=== PATIENT | female | born 1975 | race African-American/Black ===

== ENCOUNTER 2023-11-25 15:42 | Outpatient (CLI) | payer OTHER, SELFPAY ==
[2023-11-25 17:12] LABS: HIV 1/2 Ab P24 Ag Result Negative (Negative)
[2023-11-25 17:57] LABS: Hepatitis C Virus Antibody Negative (Negative)
[2023-11-26 14:45] LABS: Rapid Plasma Reagin Non-Reactive (NonReactive)
[2023-11-29 13:31] LABS: Hepatitis Be Antigen Nonreactive
== END 2023-11-25 15:43 | disposition home or self-care (01) ==
LOC: ANHLAB 15:43
PROVIDERS: Visit Provider Nurse Practitioner Family
DX: Z11.3 Encounter for screening for infections with a predominantly sexual mode of transmission (principal)
CPT/HCPCS: 36415; 86592; 86703; 86803; 87350; G0432

== ENCOUNTER 2023-12-16 06:29 | Day surgery (SDC) | payer OTHER, SELFPAY ==
[2023-11-26 14:34] VITALS: BMI 32.1
[2023-12-10 10:58] VITALS: BMI 31.8
[2023-12-16 07:15] VITALS: BP 141/102; PULSE 96; RESP 20; TEMP 36.7; O2SAT 100
--- NOTE | 2023-12-16 07:19 | PM.HPGS ---
History of Present Illness History of Present Illness Consent: Risks, benefits, and alternatives have been discussed and questions answered. Patient agrees to proceed with procedure. Chief complaint: Neoplasm Screening Narrative: Ryanne Jorgensen is a 48 year old female presents for screening colonoscopy. Patient's current weight appetite and bowel movements are normal. Patient denies abdominal pain. She has had no bleeding. Family history is significant that her mother had colon polyps. An aunt and grandmother had colon cancer. Review of Systems Review of Systems: Review of systems noncontributory. [facility] Past Medical History Medical History (Updated 12/16/23 @ 07:21 by Khari Brandt MD) Colon cancer screening Hypertension Surgical History Surgical History History of breast augmentation History of section x 3 History of cosmetic plastic surgery Lipo Suction [place] teeth removed Family History Family History Father Patient's father is in good health Mother Breast cancer History of thyroid cancer Hypertension Social History Social History Smoking status: Never smoker Alcohol intake: current Substance use type: does not use Living arrangements: with family Spiritual care concerns: No Meds Home Medications and Allergies Home Medications Medication Instructions Recorded Confirmed Type irbesartan 150 1 tablet PO DAILY 10/23/19 12/10/23 History mg-hydrochlorothiazide 12.5 mg tablet sodium,potassium,mag sulfates 17.5 See Rx Instructions PO .COMPLEX 11/26/23 12/01/23 Rx gram-3.13 gram-1.6 gram oral soln #354 mL (Suprep Bowel Prep Kit) Allergies Allergy/AdvReac Type Severity Reaction Status Date / Time codeine Allergy Unknown Nausea Verified 12/10/23 10:49 lisinopril Allergy Unknown DRY COUGH Verified 12/10/23 10:49 Penicillins Allergy Unknown Rash Verified 12/10/23 10:49 Exam Narrative: Physical exam reveals patient to be alert. Signs stable. HEENT exam is unremarkable. Patient is anicteric. Lungs are clear to auscultation and to percussion. Heart is without murmur extra sounds. Abdomen bowel sounds are present soft nontender with no organomegaly. digital external rectal exam is normal. Assessment and Plan Assessment and plan (1) Colon cancer screening: Code(s): Z12.11 - Encounter for screening for malignant neoplasm of colon Status: Acute Assessment and Plan: He presents for cancer screening. Patient's mother had colon polyps grandmother had colon cancer in aunt had colon cancer. Plan for surveillance colonoscopy now consider this a 5 year intervals.
--- NOTE | 2023-12-16 07:30 | WPDANESEPPF ---
Anes - Initial Pre Proc Eval Procedure: Operation Date: 12/16/23 08:00 Proposed Procedures p Screening Colonoscopy - Khari Brandt MD Date/Time: 12/16/23 07:30 Surgeon: Khari Brandt MD Pre Op Diagnosis: Neoplasm Screening Patient Data Age: 48 Gender: F Height: 1.57 m Weight: 79 kg Allergies Allergy/AdvReac Type Severity Reaction Status Date / Time codeine Allergy Unknown Nausea Verified 12/10/23 10:49 lisinopril Allergy Unknown DRY COUGH Verified 12/10/23 10:49 Penicillins Allergy Unknown Rash Verified 12/10/23 10:49 Home Medications Medication Instructions Recorded Confirmed Type irbesartan 150 1 tablet PO DAILY 10/23/19 12/10/23 History mg-hydrochlorothiazide 12.5 mg tablet sodium,potassium,mag sulfates 17.5 See Rx Instructions PO .COMPLEX 11/26/23 12/01/23 Rx gram-3.13 gram-1.6 gram oral soln #354 mL (Suprep Bowel Prep Kit) Patient hx anesthesia problems: none Family hx anesthesia problems: none Results Review: All pre-operative results and documents have been reviewed as part of the pre-operative evaluation. COUNT INCLUDES [facility] Past Medical History Medical History Colon cancer screening Hypertension Surgical History Surgical History History of breast augmentation History of section x 3 History of cosmetic plastic surgery Lipo Suction [place] teeth removed Family History Family History Father Patient's father is in good health Mother Breast cancer History of thyroid cancer Hypertension Social History Social History Smoking status: Never smoker Alcohol intake: current Substance use type: does not use Living arrangements: with family Spiritual care concerns: No Anes - Eval Final PreProcedure Day of Procedure 12/16/23 07:30 Patient weight: obese Heart: regular rate and rhythm Lungs: clear to auscultation Airway: Mallampati scale class II Neurological: alert and oriented Last oral intake: >/= 8 hours ASA classification: II Emergent: no Anesthetic plan: proceed Anesthesia type and monitoring: general GIVS and standard monitoring Results Review: All pre-operative results and documents have been reviewed as part of the pre-operative evaluation. Informed Consent: The patient's anesthetic plan and its attendant risks and benefits were discussed with the patient/family/POA. Questions were solicited and answers provided to the satisfaction of the patient/family/POA.
[2023-12-16] MEDS: LACTATED RINGERS 1,000 ML 150 ML IV CONT (07:36)
[2023-12-16 08:20] VITALS: BP 125/101; PULSE 92; RESP 16; O2SAT 100
[2023-12-16 08:30] VITALS: BP 133/100; PULSE 94; RESP 16; O2SAT 100
[2023-12-16 08:40] VITALS: BP 136/102; PULSE 92; RESP 16; O2SAT 100
--- NOTE | 2023-12-16 08:43 | WPDANESPN ---
Anes - Prog Note Post-Op Date/Time: 12/16/23 08:43 Cardiovascular status: normal Respiratory status: normal Airway patency: baseline Mental status: baseline Post-Op hydration status: normal Vital Signs: Last Vital Signs Temp 36.7 C 12/16/23 07:15 Pulse 92 12/16/23 08:20 Resp 16 12/16/23 08:20 BP 125/101 H 12/16/23 08:20 Pulse Ox 100 12/16/23 08:20 O2 Del Method Room Air 12/16/23 08:20 Pain Score (VAS): 0/10 I/O: Intake & Output 12/15/23 12/16/23 12/16/23 23:59 07:59 15:59 Intake Total 600 Balance 600 Patient Feedback: Patient satisfied with anesthetic care.
== END 2023-12-16 08:50 | disposition home or self-care (01) ==
PROVIDERS: Visit Provider Internal Medicine Gastroenterology
PROC: 0DJD8ZZ Inspection of Lower Intestinal Tract, Via Natural or Artificial Opening Endoscopic (ICD-10-PCS; CPT 45378; principal; 2023-12-16 08:00)
DX: Z83.718 Family history of other colon polyps (principal); D12.5 Benign neoplasm of sigmoid colon; K57.30 Diverticulosis of large intestine without perforation or abscess without bleeding; K64.8 Other hemorrhoids
CPT/HCPCS: 45385

== ENCOUNTER 2023-12-16 07:00 | Outpatient (NON) | payer OTHER, SELFPAY | END 2023-12-16 07:01 | disposition home or self-care (01) | PROVIDERS: Visit Provider Internal Medicine Gastroenterology | DX: Z12.11 Encounter for screening for malignant neoplasm of colon (principal) | CPT/HCPCS: 88305 ==

== ENCOUNTER 2024-01-23 10:36 | Emergency (ER) | payer OTHER, SELFPAY ==
[2024-01-23 11:08] VITALS: BP 120/84; PULSE 119; RESP 18; TEMP 36.8; O2SAT 97
--- NOTE | 2024-01-23 11:10 | ED.GENADULT ---
HPI - General Adult General Chief complaint: Upper Respiratory Infection Stated complaint: BODY ACHES/COUGH/CHEST & BACK PAIN Source: patient, RN notes reviewed and old records reviewed Mode of arrival: ambulatory Limitations: no limitations History of Present Illness HPI narrative: 48-year-old female presents to [facility] with complaint of cough, congestion, myalgia, fever this started Thursday. Patient taking [id number] medications with no relief. Patient states just returned from a cruise from [place]. Patient denies chest pain, shortness of breath, weakness. Related Data Home Medications Medication Instructions Recorded Confirmed irbesartan 150 1 tablet PO DAILY 10/23/19 01/23/24 mg-hydrochlorothiazide 12.5 mg tablet Allergies Allergy/AdvReac Type Severity Reaction Status Date / Time codeine Allergy Unknown Nausea Verified 01/23/24 11:07 lisinopril Allergy Unknown DRY COUGH Verified 01/23/24 11:07 Penicillins Allergy Unknown Rash Verified 01/23/24 11:07 Review of Systems Constitutional: Constitutional: Reports no additional constitutional complaints, Reports body ache(s), Denies chills, Reports fatigue, Reports fever(s) and Denies headache(s) Eyes: Eyes: Reports no additional eye complaints and Denies blurry vision ENT: Reports system reviewed and no additional complaints, except as documented, Denies vertigo, Denies dizziness, Denies ear discharge, Denies otalgia, Denies facial pain, Denies headache(s), Reports nasal congestion, Reports nasal discharge, Denies sinus pain, Reports sinus pressure and Denies sore throat Cardiovascular: Cardiovascular: Reports no additional cardiovascular complaints, Denies chest pain, Denies chest pain at rest, Denies rapid heart rate and Denies dyspnea Respiratory: Respiratory: Reports no additional respiratory complaints, Reports chest congestion, Reports cough, Denies pain on inspiration, Denies pain with cough and Denies dyspnea Gastrointestinal: Gastrointestinal: Denies abdominal pain, Denies diarrhea, Denies nausea and Denies vomiting Integumentary/Breasts: Skin/Breast: Denies rash Neurologic: Reports system reviewed and no additional complaints, except as documented, Denies vertigo, Denies dizziness and Denies headache(s) Endocrine: Endocrine: Denies fatigue PMF Past Medical History Medical History Colon cancer screening Hypertension Surgical History Surgical History History of breast augmentation History of section x 3 History of cosmetic plastic surgery Lipo Suction [place] teeth removed Family History Family History Father Patient's father is in good health Mother Breast cancer History of thyroid cancer Hypertension Social History Social History Smoking status: Never smoker Alcohol intake: current Substance use type: does not use Living arrangements: with family Spiritual care concerns: No Comments At the time of my signature, I reviewed and agree with the nursing past medical, surgical, social, and family history. There is no relevant family history pertinent to the patient complaint. Exam Const: General: cooperative, healthy appearing, no acute distress and well nourished Nutritional Appearance: well nourished Orientation/consciousness: patient oriented x3 Limitations: no limitations HENMT: Head: normal to inspection and normocephalic Ears: external ears normal, TM's normal bilaterally, EAC's normal and mastoids normal Face/Nose/Sinus: Normal nasal mucous membranes and turbinates present, normal facial exam and sinuses nontender Face and sinus: normal facial exam Mouth: Yes Normal oral and palatal mucosa present, Yes oropharynx normal and Yes moist mucous membranes Throat: tonsils
== END 2024-01-23 11:35 | disposition home or self-care (01) ==
PROVIDERS: Emergency Provider Registered Nurse
DX: B34.9 Viral infection, unspecified (principal); Z20.822 Contact with and (suspected) exposure to COVID-19; I10 Essential (primary) hypertension
CPT/HCPCS: 87426; 87804; 99213; G0463